=== PATIENT | male | born 1980 | race Two or more races ===

== ENCOUNTER 2023-12-17 23:58 | Inpatient (IN) | payer MEDICAID ==
[~2023-12-17] VITALS: Ht 180.3 cm; Wt 99.0 kg
[2023-12-18] VITALS (20 sets, daily range): BP systolic 100–147; BP diastolic 55–74; PULSE 79–104; RESP 12–18; TEMP 90.1–98.2; O2SAT 93–99
[2023-12-18] MEDS ORDERED: penicillin (00:08)
[2023-12-18] MEDS: HYDROmorphone 1 mg/ml syringe IV ONE (00:17)
[2023-12-18] MEDS: normal saline 1000ML IV soln IVB ONE (00:26)
[2023-12-18 00:27] LABS: BASOPHILS # (AUTO) 0.1 X10'3 (0-0.2); BASOPHILS % (AUTO) 1.1 % (0-1); EOSINOPHILS # (AUTO) 0.5 X10'3 (0-0.9); EOSINOPHILS % (AUTO) 6.5 % (0-6); HEMATOCRIT 38.9 % (42.0-52.0); HEMOGLOBIN 13.1 g/dl (14.0-17.9); LYMPHOCYTES # (AUTO) 3.6 X10'3 (1.1-4.8); LYMPHOCYTES % (AUTO) 44.1 % (21-51); MEAN CORPUSCULAR HEMOGLOBIN 33.2 PG (27.0-31.0); MEAN CORPUSCULAR HGB CONC 33.6 g/dL (33.0-36.5); MEAN CORPUSCULAR VOLUME 98.9 FL (78-98); MEAN PLATELET VOLUME 6.4 FL (7.4-10.4); MONOCYTES # (AUTO) 0.6 X10'3 (0-0.9); MONOCYTES % (AUTO) 7.2 % (2-12); NEUTROPHILS # (AUTO) 3.3 X10'3 (1.8-7.7); NEUTROPHILS % (AUTO) 41.1 % (42-75); PLATELET COUNT 254 X10'3 (140-440); RED BLOOD COUNT 3.93 X10'6 (4.70-6.10); RED CELL DISTRIBUTION WIDTH 13.3 % (11.5-14.5); WHITE BLOOD COUNT 8.1 X10'3 (4.5-11.0)
[2023-12-18] MEDS ORDERED: ceFAZolin 1gm IM kit ONE (00:27)
[2023-12-18] MEDS: TETanus/Pertussis (Acell)/Diphther VAC/PF (Tdap-Adult) 0.5ml syringe IMVAC ONE ×2 (00:30→01:05)
[2023-12-18 00:35] LABS: APTT 23 SECONDS (22-32)
[2023-12-18] MEDS: ceFAZolin/D5W- 1GM premix 50 ML IV STA (00:36)
[2023-12-18 00:50] LABS: INR 0.9 INR
[2023-12-18 00:53] LABS: ALANINE AMINOTRANSFERASE 30 U/L (12-78); ALBUMIN 3.1 G/DL (3.4-5.0); ALBUMIN/GLOBULIN RATIO 1.1 (1.1-1.5); ALKALINE PHOSPHATASE 49 IU/L (46-116); ANION GAP 9 (8-16); ASPARTATE AMINO TRANSFERASE 27 U/L (10-37); BILIRUBIN,TOTAL 0.2 MG/DL (0.1-1.0); BLOOD UREA NITROGEN 12 MG/DL (7-18); BUN/CREATININE RATIO 14.8 (10.0-20.0); CHLORIDE 108 MMOL/L (99-107); CREATININE 0.81 MG/DL (0.60-1.10); ETHANOL 209 MG/DL (<10); GLUCOSE 113 MG/DL (70-104); POTASSIUM 3.3 MMOL/L (3.5-5.1); SODIUM 141 MMOL/L (135-145); TOTAL CARBON DIOXIDE 24.1 MMOL/L (24-32); eCRCL 127 ML/MIN; eGFR > 90 ML/MIN
[2023-12-18] MEDS: HYDROmorphone 1 mg/ml syringe ONE (00:54)
[2023-12-18] MEDS: normal saline 1000ml 1,000 ML IV SCH (01:00)
[2023-12-18] MEDS ORDERED: CLINDAmcin 900mg/NS 50ml IVPB 50 ML IV ONE (01:00)
[2023-12-18 01:06] LABS: BILIRUBIN,DIRECT < 0.1 MG/DL (0-0.3)
[2023-12-18] MEDS ORDERED: fentaNYL /PF 50mcg/ml 5ml ampule ONE (01:09)
[2023-12-18] MEDS ORDERED: midazolam 1 mg/ML 2ml injection ONE (01:09)
[2023-12-18] MEDS ORDERED: meperidine/PF 25mg/ml syringe IV PRN ×3 (01:10)
[2023-12-18] MEDS ORDERED: morphine 4 MG/ML inj SYRINge IV PRN (01:10)
[2023-12-18] MEDS ORDERED: labetalol 20mg/4ml (5mg/ml) syringe IV PRN (01:10)
[2023-12-18] MEDS ORDERED: morphine 2 MG/ML inj. syringe IV PRN (01:10)
[2023-12-18] MEDS ORDERED: hydrALAZINE 20mg/ml inj. IV PRN (01:10)
[2023-12-18] MEDS ORDERED: proCHLORperazine 10 MG/2 ml inj IV PRN (01:10)
[2023-12-18] MEDS ORDERED: ringers solution, lacted 1,000 ML IV SCH (01:10)
[2023-12-18] MEDS ORDERED: ondansetron/PF 4mg/2ml inj IV PRN ×2 (01:10→02:25)
[2023-12-18] MEDS: acetaminophen 1,000mg/100ml IV 100 ML IV ONE (01:10)
[2023-12-18] MEDS: clindamycin-Cleocin 900mg/D5W 50 ML IV ONE (01:20)
[2023-12-18] MEDS ORDERED: sevoflurane 250ml liquid IH ONE (01:22)
[2023-12-18] MEDS: famotidine/PF 10 mg/ml inj IV ONE (01:27)
[2023-12-18] MEDS ORDERED: LIDOcaine 2% (20mg/ml) 5ml vial ONE (01:47)
[2023-12-18] MEDS ORDERED: propofol inj 20 ML IV ONE (01:47)
[2023-12-18] MEDS ORDERED: rocuronium 10mg/ml inj IV ONE (01:47)
[2023-12-18] MEDS ORDERED: vancomycin 1,000mg inj ONE (01:47)
[2023-12-18] MEDS ORDERED: ePHEDrine 50MG/ML INJ. ONE (02:00)
[2023-12-18] MEDS ORDERED: 0.9 % SODIUM CHLORIDE 10 ML VIAL ONE (02:00)
[2023-12-18] MEDS ORDERED: naloxone 0.4 mg/ml inj IV PRN (02:25)
[2023-12-18] MEDS ORDERED: sugammadex 200mg/2ml injection IV ONE (02:28)
[2023-12-18] MEDS ORDERED: GABA300T28 (03:58)
[2023-12-18] MEDS ORDERED: CYCL-1 PO (03:58)
[2023-12-18] MEDS ORDERED: DULO30CA52 PO (03:58)
[2023-12-18] MEDS: HYDROcodone/acetaminophen 10/325mg tab PO PRN (05:33)
[2023-12-18 06:31] LABS: ALANINE AMINOTRANSFERASE 25 U/L (12-78); ALBUMIN 2.7 G/DL (3.4-5.0); ALKALINE PHOSPHATASE 43 IU/L (46-116); ANION GAP 7 (8-16); ASPARTATE AMINO TRANSFERASE 41 U/L (10-37); BILIRUBIN,TOTAL 0.2 MG/DL (0.1-1.0); BLOOD UREA NITROGEN 12 MG/DL (7-18); BUN/CREATININE RATIO 16.9 (10.0-20.0); CALCIUM 7.4 MG/DL (8.5-10.1); CHLORIDE 109 MMOL/L (99-107); CREATININE 0.71 MG/DL (0.60-1.10); GLUCOSE 135 MG/DL (70-104); POTASSIUM 4.2 MMOL/L (3.5-5.1); SODIUM 141 MMOL/L (135-145); TOTAL CARBON DIOXIDE 25.1 MMOL/L (24-32); TOTAL PROTEIN 5.3 G/DL (6.4-8.2); eCRCL 144 ML/MIN; eGFR > 90 ML/MIN
[2023-12-18] MEDS: HYDROmorphone inj. 0.5 MG/0.5 ML DISP.SYRIN IV PRN (07:26)
[2023-12-18] MEDS: clindamycin 600mg/D5W 50ml 50 ML IV SCH (07:26)
[2023-12-19 05:00] VITALS: BP 129/86; PULSE 79; RESP 16; TEMP 97.6; O2SAT 100
[2023-12-19 06:24] LABS: BASOPHILS % (AUTO) 0.5 % (0-1); EOSINOPHILS % (AUTO) 0.4 % (0-6); HEMOGLOBIN 10.1 g/dl (14.0-17.9); LYMPHOCYTES # (AUTO) 1.8 X10'3 (1.1-4.8); LYMPHOCYTES % (AUTO) 28.2 % (21-51); MEAN CORPUSCULAR HEMOGLOBIN 32.9 PG (27.0-31.0); MEAN CORPUSCULAR HGB CONC 32.4 g/dL (33.0-36.5); MEAN CORPUSCULAR VOLUME 101.5 FL (78-98); MONOCYTES # (AUTO) 0.4 X10'3 (0-0.9); MONOCYTES % (AUTO) 6.7 % (2-12); NEUTROPHILS # (AUTO) 4.2 X10'3 (1.8-7.7); NEUTROPHILS % (AUTO) 64.2 % (42-75); PLATELET COUNT 189 X10'3 (140-440); RED BLOOD COUNT 3.05 X10'6 (4.70-6.10); RED CELL DISTRIBUTION WIDTH 13.4 % (11.5-14.5); WHITE BLOOD COUNT 6.5 X10'3 (4.5-11.0)
[2023-12-19 09:00] VITALS: RESP 15; O2SAT 99
[2023-12-19 10:00] VITALS: BP 152/88; PULSE 80; RESP 15; TEMP 97.6; O2SAT 99
[2023-12-19 13:40] VITALS: RESP 16
== END 2023-12-19 14:00 | disposition home or self-care (01) | DRG 317 ==
LOC: ER 23:59 → ED HOLD 12-18 00:59 → ORTHO 4S 12-18 03:15
PROVIDERS: ADMIT Surgery; ATTEND Surgery
PROC: 0JQD0ZZ Repair Right Upper Arm Subcutaneous Tissue and Fascia, Open Approach (ICD-10-PCS; 2023-12-18)
PROC: 0X380ZZ Control Bleeding in Right Upper Arm, Open Approach (ICD-10-PCS; principal; 2023-12-18 01:25)
DX: S51.811A Laceration without foreign body of right forearm, initial encounter (principal); F14.90 Cocaine use, unspecified, uncomplicated; G89.29 Other chronic pain; X58.XXXA Exposure to other specified factors, initial encounter; Z88.0 Allergy status to penicillin; Y93.89 Activity, other specified; Y92.89 Other specified places as the place of occurrence of the external cause; Y99.8 Other external cause status
CPT/HCPCS: 36415; 80048; 80053; 80076; 80320; 82948; 85025; 85610; 85730; 86885; 86900; 86901; 86920; 87081; 90715; 99291; A4615; A4618; A6223; A6446; A6449; A7000; G0378; J0690; J1100; J1170; J2250; J2405; J2704; J3010; J3370; J3490; J7030; J7040